=== PATIENT | female | born 2000 | race Asian ===

== ENCOUNTER 2021-07-15 12:10 | Emergency (ER) | payer OTHER, SELFPAY ==
[2021-07-15 12:12] VITALS: BP 122/81; PULSE 94; RESP 16; TEMP 36.7; O2SAT 96; BMI 26.5
--- NOTE | 2021-07-15 12:17 | CM.ED ---
SW Note SW received phone call from [facility] counseling staff who stated that they are sending a student to the ED. Janice, from the [facility], said that patient was seen 2 weeks ago for the same concern. Patient, per Janice, reports she can't trust herself and thus a safety plan is not an option. Janice said that patient said this is a slippery slope for me. Patient reports SI and denies plan but said I don't need a plan.. just in the moment. Patient was tearful and having a hard time. [place] security is bring patient to the ED. Janice's call back number is [phone] ore buyer and building appraiser updated. Yadira Eduardo
--- NOTE | 2021-07-15 12:45 | EKG12_ITS ---
Test Reason : SUICIDAL Blood Pressure : / mmHG Vent. Rate : 082 BPM Atrial Rate : 082 BPM P-R Int : 106 ms QRS Dur : 084 ms QT Int : 372 ms P-R-T Axes : 035 037 047 degrees QTc Int : 434 ms Sinus rhythm with short ME Otherwise normal ECG Confirmed by COLLEEN GOODMAN, PEEWEE ([id number]), publication editor GAGANDEEP SEPULVEDA ([id number]) on 07/19/2021 12:16:26 PM Referred By: SUSY Confirmed By:LINDSAY MACIAS MD
--- NOTE | 2021-07-15 12:45 | EX.ED.DYSGE1 ---
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 Patient states that she was last on psychiatric medicines in 2018. This is her first year on campus. Her [place] of the country. She notes that 2 weeks ago her RA took her to the wellness center. She returned today with worsening symptoms. She notes she is either not able to sleep or sleeping for 2 days. She states she tends to binge eat when she gets depressed like this. She notes her school performance is quite poor right now. She states that she is not able to contract for safety [facility] Medical History Depression Allergy/AdvReac Type Severity Reaction Status Date / Time No Known Allergies Allergy Verified 07/15/21 14:17 Surgical History no surgical history no surgical history Social History (Updated 07/15/21 @ 12:[address] Ahmet Morrissey, DO) Smoking Status: Never smoker substance use type: does not use ROS ROS ED Constitutional Constitutional ED: Denies chills or weight loss Eyes Eyes: Denies change in vision or diplopia ENT ENT ED: Denies ear pain, rhinorrhea or sore throat Cardiovascular Cardiovascular: Denies chest pain, orthopnea, palpitations or racing heartbeat Respiratory/Chest Respiratory/Chest: Denies cough, dyspnea or orthopnea Gastrointestinal Gastrointestinal: Denies abdominal pain, diarrhea, nausea or vomiting Genitourinary Genitourinary ED: Denies dysuria, hematuria or urinary frequency Musculoskeletal Musculoskeletal: Denies arthralgias or myalgias Integumentary Denies abscess or rash Neurologic Neurologic: Denies headache(s) or weakness Psychiatric Psychiatric: Reports abnormal sleep pattern, change in appetite, depression, suicidal ideation, suicidal thoughts and other; Denies anxiety or auditory hallucinations Endocrine Endocrinology: Denies polydipsia, polyphagia or polyuria Allergic/Immunologic Allergic/Immunologic ED: Denies mouth swelling, tongue swelling or urticaria EXAM Physical Exam Const Vital Signs: 07/15/21 12:12 07/15/21 13:34 Temperature 98.0 F Temperature Source Temporal Pulse Rate 94 Respiratory Rate 16 14 Blood Pressure 122/81 H Blood Pressure Mean 94 Pulse Ox 96 Oxygen Delivery Method Room Air Room Air Positive well nourished and well developed General Appearance ED: well developed HEENT Reports normocephalic, head/scalp atraumatic and moist mucous membranes Eyes PERRL and EOMs intact bilaterally Neck no lymphadenopathy, supple and no JVD Resp normal respiratory effort and clear to auscultation bilaterally Cardio regular rate, regular rhythm and no murmurs GI normal to inspection, nondistended, normoactive bowel sounds and non-tender Palpation: soft Back/Spine no CVA tenderness and normal ROM Extremity normal to inspection General Extremety ED: Negative for edema General Extremity: Negative for edema Neuro oriented x3 and CN's II-XII intact bilaterally Sensorium / Orientation: alert Motor Exam: strength 5/5 throughout Psych mental status grossly normal Mood & Affect: depressed, sad, tearful and flat affect Thought Process: normal thought process Thought Content: suicidality Attention / Concentration: attention grossly intact Memory / Cognition: memory grossly intact Skin no rashes or lesions noted and no wounds MDM MDM MDM Narrative Medical decision making narrative: CBC CMP TSH and toxicology work-up negative. Covid test negative. Patient was also assessed by our social welfare administrator. Plan is for the patient to be transferred to psychiatric facility. Lab Data Attestation: I reviewed the patient's lab results. Labs: Laboratory Results - last 24 hr 07/15/21 07/15/21 07/15/21 12:38 12:50 12:50 WBC 11.1 H RBC 5.03 Hgb 12.6 Hct 40.9 MCV 81.3 MCH 25.0 L MCHC 30.8 L RDW Std Deviation 39.4 RDW Coeff of Courtney 13.3 Plt Count 465 H MPV 9.6 Immature Gran % (Auto) 0.800 Neut % (Auto) 63.2 Lymph % (Auto) 26.9 [place] % (Auto) 6.3 Eos % (Auto) 2.3 Baso % (Auto) 0.5 Absolute Neuts (auto) 7.0 Absolute Lymphs (auto) 2.98 Nucleated RBC % 0 Sodium 137 Potassium 3.6 Chloride 105 Carbon Dioxide 26.0 Anion Gap 6 BUN 9 Creatinine 0.64 Estim Creat Clear Calc 114.06 Est GFR (MDRD) Af Amer 148 Est GFR (MDRD) Non-Af 122 BUN/Creatinine Ratio 14.0 Glucose 105 Calcium 9.3 Total Bilirubin 0.30 AST 18 ALT 27 Alkaline Phosphatase 81 Total Protein 8.8 H Albumin 3.6 Globulin 5.2 H Albumin/Globulin Ratio 0.7 L TSH 1.62 Serum , Qual Urine Opiates Screen NEGATIVE Urine Methadone Screen NEGATIVE Ur Barbiturates Screen NEGATIVE Ur Phencyclidine Scrn NEGATIVE Ur Amphetamines Screen NEGATIVE U Methamphetamin-MDMA NEGATIVE U Benzodiazepines Scrn NEGATIVE Urine Cocaine Screen NEGATIVE U Cannabinoids Screen NEGATIVE Ur Drug Screen Comment Ethyl Alcohol 07/15/21 07/15/21 12:50 12:50 WBC RBC Hgb Hct MCV MCH MCHC RDW Std Deviation RDW Coeff of Courtney Plt Count MPV Immature Gran % (Auto) Neut % (Auto) Lymph % (Auto) [place] % (Auto) Eos % (Auto) Baso % (Auto) Absolute Neuts (auto) Absolute Lymphs (auto) Nucleated RBC % Sodium Potassium Chloride Carbon Dioxide Anion Gap BUN Creatinine Estim Creat Clear Calc Est GFR (MDRD) Af Amer Est GFR (MDRD) Non-Af BUN/Creatinine Ratio Glucose Calcium Total Bilirubin AST ALT Alkaline Phosphatase Total Protein Albumin Globulin Albumin/Globulin Ratio TSH Serum , Qual NEGATIVE Urine Opiates Screen Urine Methadone Screen Ur Barbiturates Screen Ur Phencyclidine Scrn Ur Amphetamines Screen U Methamphetamin-MDMA U Benzodiazepines Scrn Urine Cocaine Screen U Cannabinoids Screen Ur Drug Screen Comment Ethyl Alcohol 4.0 EKG Initial EKG: Attestation: I personally reviewed and interpreted this EKG as follows: Comments: Sinus rhythm with a ventricular rate of 82 bpm. Discharge Plan Triage Chief Complaint: Suicidal ED Provider: Ahmet Morrissey Dx/Rx/DC Orders Clinical Impression: Depression, Suicidal ideation Primary Care Provider: Kiran Mondragon Disposition Disposition: Psychiatric Hospital or Unit
[2021-07-15 13:03] LABS: Absolute Lymphocyte Count 2.98 X10^3/uL (0.83-4.51); Basophil# 0.06 X10^3/uL; Basophil% 0.5 % (0-1); Eosinophil# 0.25 X10^3/uL; Eosinophils% 2.3 % (0-5); Hematocrit 40.9 % (37-47); Hemoglobin 12.6 g/dL (12.0-15.0); Lymphocyte # 2.98 X10^3/ul (0.83-4.51); Lymphocyte % 26.9 % (19-41); Mean Corp Hgb Conc 30.8 g/dL (32-36); Mean Corpuscular Volume 81.3 fL (81-99); Mean Platelet Vol. 9.6 fl (6.2-12.0); Monocyte% 6.3 % (0-10); NRBC Flagged by Analyzer 0 % (0-5); Neutrophil # 6.98 X10^3/uL (2.7-7.7); Neutrophil % 63.2 % (47-70); Platelet Count 465 K/mm3 (150-450); RBC Distribution Width CV 13.3 % (11.6-14.6); RBC Distribution Width SD 39.4 fl (35.1-43.9); Red Blood Count 5.03 M/mm3 (4.2-5.4); White Blood Count 11.1 K/mm3 (4.4-11.0)
[2021-07-15 13:18] LABS: Internal QC Validated? YES +Cl - CLEAR BKGD; Pregnancy, Serum, hCG Quali. NEGATIVE Negative
[2021-07-15 13:21] LABS: Amphetamine Urine VISTA NEGATIVE (<1000 ng/mL); Barbiturate Urine VISTA NEGATIVE (< 200 ng/mL); Benzodiazepine Urine VISTA NEGATIVE (< 200 ng/mL); Cocaine Urine VISTA NEGATIVE (< 300 ng/mL); Ecstacy Urine VISTA NEGATIVE (< 500 ng/mL); Methadone Urine VISTA NEGATIVE (< 300 ng/mL); PCP Urine VISTA NEGATIVE (< 25 ng/mL); THC Urine VISTA NEGATIVE (< 50 ng/mL); Vista UDS pH Range 5
[2021-07-15 13:28] LABS: ALB/GLOB Ratio 0.7 RATIO (0.9-2.4); AST(SGOT) 18 U/L (15-37); Alanine Aminotransfer ALT/SGPT 27 U/L (13-56); Albumin, Serum 3.6 g/dL (3.2-5.0); Alkaline Phosphatase 81 U/L (45-117); Anion Gap 6 (5-15); BUN 9 mg/dL (7-18); Calcium,Total 9.3 mg/dL (8.5-10.1); Chloride 105 mmol/L (98-107); Creatinine, Serum 0.64 mg/dL (0.55-1.02); EST Glomerular Filtration Rate 122 mL/min (>60); Est Glom Filt Rate - Afr Amer 148 mL/min (>60); Estimated Creatinine Clearance 114.06 ml/min; Globulin 5.2 g/dL (2.2-4.2); Glucose 105 mg/dL (74-106); Potassium 3.6 mmol/L (3.5-5.1); Protein, Total 8.8 g/dL (6.4-8.2); Sodium Level 137 mmol/L (136-145); Thyroid Stim Hormone (TSH) 1.62 uIU/mL (0.358-3.74)
[2021-07-15 13:34] VITALS: RESP 14
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
--- NOTE | 2021-07-15 15:01 | ED.RN ---
PER SHAHNAZ MARY PT IS ACCEPTED TO FACILITY PENDING EKG AND PREG FAXED TO THEM. THEY WILL CALL US WITH ACCEPTING INFORMATION.
[2021-07-15 15:52] VITALS: BP 124/95; PULSE 86; RESP 16; TEMP 36.9; O2SAT 99
[2021-07-15 15:53] VITALS: BP 128/79; PULSE 68; RESP 16; TEMP 36.9; O2SAT 99
== END 2021-07-15 16:10 ==
PROVIDERS: Emergency Provider Emergency Medicine; PCP Pediatrics
DX: R45.851 Suicidal ideations (principal); F32.A Depression, unspecified
CPT/HCPCS: 36415; 80053; 80307; 82077; 84443; 84703; 85025; 87426; 93005; 99285